=== PATIENT | male | born 1970 | race Caucasian/White ===

== ENCOUNTER 2020-12-12 12:11 | Day surgery (SDC) | payer OTHER, BC ==
[~2020-12-12] VITALS: Ht 177.8 cm; Wt 113.9 kg
[~2020-12-12 12:11] MED LIST: AMOCLA875 PO; HYDACE5 PO; LISI20 PO; LISI5 PO; Prinivil10 MG
[2020-12-12] MEDS ORDERED: NORTRIPTYLINE H25 M6 PO (13:47)
--- NOTE | 2020-12-12 14:02 | NUR ---
12/12/20 1402 Imelda Mcdaniel PRP DRAWN AND IN BACK OF OR FOR PROCESSING.
== END 2020-12-12 18:08 | disposition home or self-care (01) ==
LOC: ORSCSDS 12:11
PROVIDERS: Orthopaedic Surgery
PROC: 0LQ24ZZ Repair Left Shoulder Tendon, Percutaneous Endoscopic Approach (ICD-10-PCS; principal; 2020-12-12 14:00)
PROC: 0LS40ZZ Reposition Left Upper Arm Tendon, Open Approach (ICD-10-PCS; principal; 2020-12-12 14:00)
PROC: 0RNK4ZZ Release Left Shoulder Joint, Percutaneous Endoscopic Approach (ICD-10-PCS; principal; 2020-12-12 14:00)
PROC: 0LU24KZ Supplement Left Shoulder Tendon with Nonautologous Tissue Substitute, Percutaneous Endoscopic Approach (ICD-10-PCS; principal; 2020-12-12 14:00)
DX: M75.112 Incomplete rotator cuff tear or rupture of left shoulder, not specified as traumatic (principal); M75.22 Bicipital tendinitis, left shoulder; M75.42 Impingement syndrome of left shoulder; S46.101A Unspecified injury of muscle, fascia and tendon of long head of biceps, right arm, initial encounter; M75.02 Adhesive capsulitis of left shoulder; I10 Essential (primary) hypertension; E66.01 Morbid (severe) obesity due to excess calories; Z68.36 Body mass index [BMI] 36.0-36.9, adult; Z79.899 Other long term (current) drug therapy
CPT/HCPCS: 82947; C1713; J0171; J0690; J1100; J2001; J2250; J2405; J2704; J3010; J7120

== ENCOUNTER → 2021-07-14 | Outpatient (CLI) | payer BC ==
[~2021-07-14] MED LIST changes: +NORTRIPTYLINE H25 M6 PO
== END | disposition home or self-care (01) ==
LOC: LAB SHORT 12:49
DX: M79.671 Pain in right foot (principal); M20.11 Hallux valgus (acquired), right foot; M20.5X1 Other deformities of toe(s) (acquired), right foot
CPT/HCPCS: 88305; 88311